=== PATIENT | female | born 1985 | race Caucasian/White ===

== ENCOUNTER 2020-05-17 18:18 | Emergency (ER) | payer OTHER ==
[~2020-05-17] VITALS: Ht 165.1 cm; Wt 102.1 kg
--- NOTE | ~2020-05-17 | EKG ---
[address] [address] ELECTROCARDIOGRAM REPORT Name: ADRIAN KRAMER Room #: [facility] M.R.#: [id number] Admission: Attend Phys: Discharge: Date of : 89 Report #: [id number] [facility] ED Test Date: 2020-05-17 Test Time: 18:29:48 Pat Name: ADRIAN KRAMER Department: Room: Gender: F [employer] Operator: Bryan Bosch : 1985 Requested By: Luis Valle Order Number: [id number] MD: Measurements Intervals [place] Rate: 71 P: 36 AK: 171 QRS: 6 QRSD: 92 T: 28 QT: 388 QTc: 422 Interpretive Statements Sinus rhythm LVH by voltage No previous ECG available for comparison [email or web address] By: 28 28 Epiphany MD Priscilla /EPI
[~2020-05-17 18:18] MED LIST: MOBIC7.5 MG PO
[2020-05-17] MEDS ORDERED: IBUPROFEN 800800 M1 PO (18:32)
[2020-05-17 18:37] LABS: ABSOLUTE NEUTROPHILS 5.6 thou/uL (1.4-8.2); BASOPHILS 0.7 % (0.0-2.0); EOSINOPHILS 3.6 % (0.0-3.0); HEMOGLOBIN 10.1 gm/dL (12.0-15.0); LYMPHOCYTES 22.4 % (24.0-44.0); MCH 28.7 pg (26.0-34.0); MCHC 32.7 g/dL (28.0-37.0); MCV 87.8 fL (80.0-100.0); MONOCYTES 6.5 % (1.0-8.0); PLATELET COUNT 266 thou/uL (150-400); POLYS 66.8 % (36.0-66.0); RBC 3.53 mil/uL (4.20-5.00); RDW 13.6 % (10.5-14.5); WBC 8.4 thou/uL (4.0-11.0)
[2020-05-17 18:43] LABS: ANION GAP 13 mmol/L (7-16); BUN 17 mg/dL (7-18); CHLORIDE 106 mmol/L (98-107); CO2 25 mmol/L (21-32); GLUCOSE 93 mg/dL (74-106); POTASSIUM 3.7 mmol/L (3.5-5.1); SODIUM 144 mmol/L (136-145)
[2020-05-17 18:53] LABS: ALBUMIN 2.8 g/dL (3.4-5.0); DIRECT BILIRUBIN < 0.1 mg/dL (<0.1-0.2); LIPASE 141 U/L (73-393); SGOT 18 U/L (15-37); SGPT 32 U/L (30-65); TOTAL BILIRUBIN 0.2 mg/dL (0.2-1.0); TOTAL PROTEIN 6.5 g/dL (6.4-8.2); TROPONIN-I <0.06 ng/mL (<0.06)
[2020-05-17 18:58] LABS: URINE BILIRUBIN NEGATIVE (Negative); URINE BLOOD 3+ (Negative); URINE CLARITY CLEAR; URINE COLOR YELLOW; URINE GLUCOSE-RANDOM* NEGATIVE (Negative); URINE KETONES NEGATIVE (Negative); URINE LEUKOCYTES-REFLEX TRACE (Negative); URINE NITRITE-REFLEX NEGATIVE (Negative); URINE PROTEIN (DIPSTICK) NEGATIVE (Negative); URINE SPECIFIC GRAVITY 1.025 (1.005-1.035); URINE UROBILINOGEN 0.2 E.U./dl (0.2-1.0)
[2020-05-17 19:10] LABS: BACTERIA-REFLEX 1-9 Few /HPF (None Seen); CASTS None Seen /LPF (None Seen); CRYSTALS None Seen /LPF (None Seen); SQUAMOUS 4-10 Moderate /LPF (0-3); URINE RBC 3-10 Few /HPF (0-2); URINE WBC-REFLEX 6-15 Few /HPF (0-5)
[2020-05-17] MEDS ORDERED: MACROBID 100 M100 M1 PO (20:02)
[2020-05-17 20:08] VITALS: BP 124/75
== END 2020-05-17 20:13 | disposition home or self-care (01) ==
LOC: ER 18:18
PROVIDERS: Nurse Practitioner
DX: N39.0 Urinary tract infection, site not specified (principal); R06.00 Dyspnea, unspecified; R07.89 Other chest pain; Z79.899 Other long term (current) drug therapy; Z88.8 Allergy status to other drugs, medicaments and biological substances